=== PATIENT | male | born 1995 ===

== ENCOUNTER 2017-08-10 00:06 | Emergency (ER) | payer BC ==
[2017-08-10] MEDS ORDERED: ACETAMINOPHEN 500 MG TABLET (FP) PO ONE (00:13)
--- NOTE | 2017-08-10 00:18 | PDOC ---
History of Present Illness - General Chief Complaint: Pain, Acute Stated Complaint: COUGH, FEVER, BODY ACHES Time Seen by Provider: 08/10/17 00:09 History Source: Patient Exam Limitations: No Limitations - History of Present Illness Initial Comments: 08/10/17 00:13 This is a 21-year-old male who comes in complaining of 4 days now of viral upper respiratory tract type symptoms consisting of headache, body aches, fever , chills, decreased appetite and in general just feeling poor. Patient said he does not have a thermometer so didn't take his temperature. Patient has not been taking anything for his symptoms including Tylenol or multi symptom cold medication. Patient is otherwise healthy takes no medications and has no medical problems PAST MEDICAL HISTORY: no significant history PAST SURGICAL HISTORY: no significant history FAMILY HISTORY: no pertinant history SOCIAL HISTORY: Pt lives with family and is employed. MEDICATIONS: reviewed ALLERGIES: As per nursing notes Review of Systems General: +fevers or +chills, + generalized weakness, no weight loss HEENT: No change in vision. No sore throat,. No ear pain CardioVascular: No chest pain or shortness of breath Respiratory:+ cough, or wheezing. Gastrointestinal: no nausea, vomitting, diarrhea or constipation, No rectal bleeding Genitourinary: No dysuria, hematuria, or frequency Musculoskeletal: No joint or muscle pain or swelling Neurologic: No headache, vertigo, dizziness or loss of consciousness Psychiatric: nor depression Skin: No rashes or easy bruising Endocrine: no increased thirst or abnormal weight change Allergic: no skin or latex allergy All other systems reviewed and normal Exam: General: Well-nourished well-developed individual, no acute distress HEENT: Throat: Normal, tonsils normal, no erythema or exudate Neck: Supple, no meningeal signs, no lymphadenopathy Eyes::Pupils equal reactive and round, extraocular motion intact Chest: Nontender to palpation Cardiac: S1-S2 normal, regular rate and rhythm, no murmurs rubs or gallops Respiratory: Lungs clear to auscultation bilateral Abdomen: Soft, nondistended, normal bowel sounds, nontender to palpation diffusely Extremities: Warm, dry, no cyanosis, clubbing, or edema Skin: No rashes Neuro: Alert and oriented x3, CN II - XII intact, nonfocal exam with normal strength, normal sensation, normal reflexes, normal gait, Psych: Normal mood and affect Assessment and plan: Patient is well-appearing here in the emergency room. He does appear to be well-hydrated. H he is afebrile. Patient given some Tylenol for his body aches and headache. Patient reassured that this is most likely a virus it will run its course and to purchase a thermometer, purchase some multisymptom cold medication such as TheraFlu and follow-up with his doctor Past History - Past Medical History Allergies/Adverse Reactions: Allergies Allergy/AdvReac Type Severity Reaction Status Date / Time No Known Allergies Allergy Verified 08/10/17 00:08 Home Medications: Ambulatory Orders NK [No Known Home Medication] 08/10/17 *DC/Admit/Observation/Transfer Diagnosis at time of Disposition: Influenza-like illness - Discharge Dispostion Disposition: HOME Condition at time of disposition: Stable Admit: No - Referrals - Patient Instructions Additional Instructions: Go to the pharmacy and purchased a thermometer that you can used to take her temperature. If you're temperature is over 101 take Tylenol 2 tablets and alternate it with ibuprofen 2 tablets every 3 hours. In addition to that for body aches headaches and congestion purchase some over- the-counter TheraFlu and take as prescribed on the box. Return to the emergency department immediately with ANY new, persistent or worsening symptoms. Continue any medications as previously prescribed by your physician. You should follow up with your primary doctor as soon as possible regarding today's emergency department visit. . Please make sure your doctor reviews the results of your emergency evaluation. Thank you for coming to the Emergency Department today for your care. It was a pleasure to see you today. Please note that your evaluation is INCOMPLETE until you follow-up with your doctor. - Post Discharge Activity
[2017-08-10 00:26] VITALS: BP 138/81; PULSE 96; TEMP 98.7; BMI 27.4
== END 2017-08-10 00:38 | disposition home or self-care (01) ==
LOC: FER 00:06
DX: J11.1 Influenza due to unidentified influenza virus with other respiratory manifestations (principal)
CPT/HCPCS: 99281-25